=== PATIENT | male | born 1975 | race Caucasian/White ===

== ENCOUNTER 2018-09-28 09:09 | Day surgery (SDC) | payer BC ==
--- NOTE | 2018-09-28 11:09 | CP.SDSHP ---
Same Day Surgery H & P - History Proposed Procedure: colonoscopy Pre-Op Diagnosis: screen - Previous Medical/Surgical History Cardiac: Hypertension - Allergies Allergies: Allergies amlodipine [From [facility]] Allergy (Verified 09/28/18 10:06) ITCHING oxycodone Allergy (Verified 09/28/18 10:06) VOMITING - Physical Exam Vital Signs: Vital Signs 09/28/18 09:30 Temperature 97.3 F L Pulse Rate 76 Respiratory 16 Rate Blood Pressure 164/89 H O2 Sat by Pulse 98 Oximetry Mental Status: Alert & Oriented x3 Neuro: WNL Heart: WNL Lungs: WNL GI: WNL - {Optional Preform as Required} Abdomen: WNL - Impression Impression: screen Pt. Evaluated Today:Candidate for Anesthesia & Procedure: Yes - Date & Time Date: 09/28/18 Time: 11:00 Short Stay Discharge - Short Stay Discharge Admitting Diagnosis/Reason for Visit: SCREENING Disposition: HOME/ ROUTINE
[2018-09-28] MEDS ORDERED: Lactated Ringer's 1,000 ML IV ONE (11:10)
[2018-09-28] MEDS ORDERED: Midazolam 2 MG/2 ML VIAL ONE (11:17)
[2018-09-28] MEDS ORDERED: Propofol 10 mg/ml Inj (20 ML) ONE (11:18)
[2018-09-28 12:57] VITALS: BMI 44.0
[2018-09-28 12:58] VITALS: PULSE 76; RESP 16; TEMP 97.3; O2SAT 98
[2018-09-28 13:27] VITALS: BP 126/73
== END 2018-09-28 12:30 | disposition home or self-care (01) ==
LOC: C.ENDO 09:09
PROVIDERS: ATTEND Internal Medicine Gastroenterology
DX: Z12.11 Encounter for screening for malignant neoplasm of colon (principal); D12.5 Benign neoplasm of sigmoid colon; K57.30 Diverticulosis of large intestine without perforation or abscess without bleeding; K64.8 Other hemorrhoids
CPT/HCPCS: 45380; 88305; J2250; J2704; J7120